=== PATIENT | male | born 1975 | race Caucasian/White ===

== ENCOUNTER → 2020-11-11 | Outpatient (CLI) | payer OTHER | END | disposition home or self-care (01) | LOC: COVID19 11:16 | PROVIDERS: ATTEND Internal Medicine | DX: R50.9 Fever, unspecified (principal); Z20.828 Contact with and (suspected) exposure to other viral communicable diseases ==

== ENCOUNTER 2021-01-01 13:13 | Emergency (ER) | payer OTHER ==
[~2021-01-01] VITALS: Ht 180.3 cm; Wt 73.9 kg
== END 2021-01-01 15:05 | disposition home or self-care (01) ==
LOC: ED 13:13
DX: S61.211A Laceration without foreign body of left index finger without damage to nail, initial encounter (principal); W26.8XXA Contact with other sharp object(s), not elsewhere classified, initial encounter; Y93.89 Activity, other specified; Y92.89 Other specified places as the place of occurrence of the external cause; Y99.8 Other external cause status